=== PATIENT | male | born 1970 | race Caucasian/White ===

== ENCOUNTER 2024-12-25 11:31 | Inpatient (IN) | payer OTHER ==
[~2024-12-25] VITALS: Ht 177.8 cm; Wt 143.0 kg
[~2024-12-25 11:31] MED LIST: ALBU18HF12 PO; AZIT-167 PO; CARV6.2534 PO; FURO20TA4 PO; LOSA100T59 PO; PRED-554 PO; SACU1TAB7 PO; SPIR-37 PO
[2024-12-25] MEDS: FUROSEMIDE 20 MG/2 ML VIAL IVP ONE (11:56)
[2024-12-25] MEDS ORDERED: IOHEXOL 350 MG/ML 100 ML VIAL ONE (12:16)
[2024-12-25] MEDS ORDERED: SODIUM CHLORIDE 0.9% 100 ML ONE (12:17)
[2024-12-25 12:22] LABS: PLATELET COUNT (AUTO) 252 K/uL (150-450); RED BLOOD CELL COUNT(AUTO) 5.20 MIL/uL (4.50-5.90); RED CELL DISTRIBUTION WIDTH 14.1 % (11.5-14.5); WHITE BLOOD COUNT (AUTO) 9.7 K/uL (4.5-11.0)
[2024-12-25 12:23] LABS: CALCIUM, TOTAL 8.9 mg/dL (8.8-10.5); CREATININE 0.91 mg/dL (0.60-1.30); GLOMERULAR FILTR. RATE CALC > 60 mL/min (>60); GLUCOSE,RANDOM 276 mg/dL (70-110); SODIUM SERUM 137 mmol/L (136-145); UREA NITROGEN, BLOOD 14 mg/dL (7-18)
[2024-12-25 12:28] LABS: ALCOHOL, BLOOD (SERUM) < 3 mg/dL (0-10)
[2024-12-25 12:30] LABS: TROPONIN I-HIGH SENSITIVITY 36 ng/L (<76)
[2024-12-25 12:34] LABS: ASPARTATE AMINOTRANSFERASE 23 U/L (15-37); CREATINE KINASE, TOTAL ONLY 148 U/L (39-308); TOTAL PROTEIN, SERUM 7.0 g/dL (6.4-8.2)
[2024-12-25 13:00] VITALS: PULSE 77; PULSE 86; RESP 20; RESP 24; O2SAT 98; O2SAT 99
[2024-12-25 13:47] LABS: ABG BASE EXCESS 0.0 mmol/L (-2.0-3.0); ABG CARBOXYHEMOGLOBIN 1.1 % (0.5-1.5); ABG HCO3 25.3 mmol/L (21.0-28.0); ABG METHEMOGLOBIN 0.6 % (0.0-1.5); ABG OXYGEN CONTENT 21.0 mL/dL (15.0-23.0); ABG OXYGEN SATURATION 99.6 % (94.0-98.0); ABG OXYHEMOGLOBIN 97.9 % (94.0-98.0); ABG PCO2 31 mmHg (32.0-48.0); ABG PH 7.496 (7.350-7.450); ABG TOTAL HEMOGLOBIN 15.1 G/dL (13.5-17.5); FRACTIONATED INSPIRED OXYGEN 33.0 % (21-100.0); PO2, ARTERIAL BG 146.8 mmHg (83.0-108.0); SOURCE, BLOOD GAS ARTERIAL; TEMPERATURE, FAHRENHEIT, BG 97.9 FAHREN (96.0-98.6)
[2024-12-25 13:48] LABS: ALLEN TEST, BLOOD GAS POS; O2 DEVICE,BLOOD GAS NC (ROOM AIR); SITE, BLOOD GAS LFT BRACHIAL
[2024-12-25 13:49] LABS: PH,URINE DRUG SCREEN 5.0 (5.0-8.0)
[2024-12-25 13:55] LABS: ALCOHOL, URINE DRUG SCREEN NEGATIVE (NEGATIVE); AMPHET/METH SCREEN,URINE NEGATIVE (NEGATIVE); BARBITURATE SCREEN, URINE NEGATIVE (NEGATIVE); CANNABINOID SCREEN,URINE NEGATIVE (NEGATIVE); COCAINE SCREEN,URINE NEGATIVE (NEGATIVE); METHADONE SCREEN, URINE NEGATIVE (NEGATIVE)
[2024-12-25 14:26] LABS: TROPONIN I-HIGH SENSITIVITY 32 ng/L (<76)
[2024-12-25] MEDS ORDERED: IPRATROPIUM BROMIDE 0.5 MG/2.5 ML NEB SOLUTION NEB PRN (14:30)
[2024-12-25] MEDS ORDERED: ALBUTEROL SULFATE 2.5 MG/0.5 ML NEB SOLUTION NEB PRN (14:30)
[2024-12-25] MEDS: BENZONATATE 100 MG CAPSULE PO SCH (15:15)
[2024-12-25 18:31] VITALS: BP 158/90; PULSE 107; RESP 19; TEMP 99.1; O2SAT 100
[2024-12-25] MEDS ORDERED: GLUCAGON,HUMAN RECOMBINANT 1 MG VIAL IM PRN (20:00)
[2024-12-25] MEDS: IPRATROPIUM BROMIDE 0.5 MG/2.5 ML NEB SOLUTION NEB SCH (20:00)
[2024-12-25] MEDS: ALBUTEROL SULFATE 2.5 MG/0.5 ML NEB SOLUTION NEB SCH (20:00)
[2024-12-25 20:30] VITALS: BP 158/110; PULSE 110; RESP 20; TEMP 98.4; O2SAT 98
[2024-12-25] MEDS: INSULIN LISPRO 100 UNITS/ML SQ PRN (20:47)
[2024-12-25] MEDS: GuaiFENesin SR 600 MG ER TABLET PO SCH (20:54)
[2024-12-25] MEDS: SACUBITRIL/VALSARTAN 49-51 MG TABLET PO SCH (20:55)
[2024-12-25] MEDS: FUROSEMIDE 20 MG/2 ML VIAL IVP SCH (20:56)
[2024-12-25 21:10] LABS: GLUCOMETER DEV NAME(LOC) 5N.1D; GLUCOSE,POINT OF CARE 285 MG/DL (70-110)
[2024-12-26] VITALS (11 sets, daily range): BP systolic 101–149; BP diastolic 57–108; PULSE 79–105; RESP 16–21; TEMP 97.9–98.2; O2SAT 95–100
[2024-12-26 06:14] LABS: PLATELET COUNT (AUTO) 259 K/uL (150-450); RED BLOOD CELL COUNT(AUTO) 5.48 MIL/uL (4.50-5.90); RED CELL DISTRIBUTION WIDTH 14.3 % (11.5-14.5); WHITE BLOOD COUNT (AUTO) 11.0 K/uL (4.5-11.0)
[2024-12-26 06:32] LABS: CALCIUM, TOTAL 8.5 mg/dL (8.8-10.5); CREATININE 0.76 mg/dL (0.60-1.30); GLOMERULAR FILTR. RATE CALC > 60 mL/min (>60); GLUCOSE,RANDOM 301 mg/dL (70-110); SODIUM SERUM 137 mmol/L (136-145); UREA NITROGEN, BLOOD 12 mg/dL (7-18)
[2024-12-26] MEDS: LOSARTAN POTASSIUM 50 MG TABLET PO SCH (08:59)
[2024-12-26] MEDS: SPIRONOLACTONE 25 MG TABLET PO SCH (09:00)
[2024-12-26] MEDS: FUROSEMIDE 20 MG/2 ML VIAL IVP SCH (09:01)
[2024-12-26 09:16] LABS: GLUCOMETER DEV NAME(LOC) 5N.1D; GLUCOSE,POINT OF CARE 322 MG/DL (70-110)
[2024-12-26 11:35] LABS: GLUCOMETER DEV NAME(LOC) 5N.2C; GLUCOSE,POINT OF CARE 395 MG/DL (70-110)
[2024-12-26 17:11] LABS: GLUCOMETER DEV NAME(LOC) 5N.1D; GLUCOSE,POINT OF CARE 424 MG/DL (70-110)
[2024-12-26] MEDS: INSULIN LISPRO 100 UNITS/ML SQ ONE (17:13)
[2024-12-27] VITALS (11 sets, daily range): BP systolic 93–147; BP diastolic 63–106; PULSE 78–102; RESP 16–22; TEMP 97–98.4; O2SAT 95–100
[2024-12-27 06:06] LABS: PLATELET COUNT (AUTO) 289 K/uL (150-450); RED BLOOD CELL COUNT(AUTO) 5.57 MIL/uL (4.50-5.90); RED CELL DISTRIBUTION WIDTH 14.2 % (11.5-14.5); WHITE BLOOD COUNT (AUTO) 18.8 K/uL (4.5-11.0)
[2024-12-27 06:36] LABS: CALCIUM, TOTAL 8.5 mg/dL (8.8-10.5); CREATININE 0.99 mg/dL (0.60-1.30); GLOMERULAR FILTR. RATE CALC > 60 mL/min (>60); GLUCOSE,RANDOM 327 mg/dL (70-110); SODIUM SERUM 135 mmol/L (136-145); UREA NITROGEN, BLOOD 26 mg/dL (7-18)
[2024-12-27 08:05] LABS: GLUCOMETER DEV NAME(LOC) 5N.1D; GLUCOSE,POINT OF CARE 350 MG/DL (70-110)
[2024-12-27 08:05] LABS: GLUCOMETER DEV NAME(LOC) 5N.1D; GLUCOSE,POINT OF CARE 380 MG/DL (70-110)
[2024-12-27 13:36] LABS: GLUCOMETER DEV NAME(LOC) 5N.1D; GLUCOSE,POINT OF CARE 475 MG/DL (70-110)
[2024-12-27] MEDS ORDERED: DEXTROSE 50%-WATER 25 GM/50 ML SYRINGE IVP PRN (14:00)
[2024-12-27] MEDS: INSULIN LISPRO 100 UNITS/ML SQ PRN (14:01)
[2024-12-27 17:55] LABS: GLUCOMETER DEV NAME(LOC) 5N.1D; GLUCOSE,POINT OF CARE 355 MG/DL (70-110)
[2024-12-27 22:06] LABS: GLUCOMETER DEV NAME(LOC) 5N.1D; GLUCOSE,POINT OF CARE 333 MG/DL (70-110)
[2024-12-28] VITALS (13 sets, daily range): BP systolic 105–145; BP diastolic 85–113; PULSE 74–102; RESP 16–24; TEMP 98.1–98.6; O2SAT 94–100
[2024-12-28 06:06] LABS: PLATELET COUNT (AUTO) 292 K/uL (150-450); RED BLOOD CELL COUNT(AUTO) 5.42 MIL/uL (4.50-5.90); RED CELL DISTRIBUTION WIDTH 14.6 % (11.5-14.5); WHITE BLOOD COUNT (AUTO) 16.7 K/uL (4.5-11.0)
[2024-12-28 06:14] LABS: CALCIUM, TOTAL 8.2 mg/dL (8.8-10.5); CREATININE 1.02 mg/dL (0.60-1.30); GLOMERULAR FILTR. RATE CALC > 60 mL/min (>60); GLUCOSE,RANDOM 320 mg/dL (70-110); SODIUM SERUM 135 mmol/L (136-145); UREA NITROGEN, BLOOD 28 mg/dL (7-18)
[2024-12-28 07:20] LABS: GLUCOMETER DEV NAME(LOC) 5N.1D; GLUCOSE,POINT OF CARE 329 MG/DL (70-110)
[2024-12-28 07:20] LABS: GLUCOMETER DEV NAME(LOC) 5N.2C; GLUCOSE,POINT OF CARE 314 MG/DL (70-110)
[2024-12-28] MEDS: OMEPRAZOLE 20 MG CAPSULE PO SCH (08:16)
[2024-12-28] MEDS ORDERED: BENZONATATE 100 MG CAPSULE PO SCH (16:00)
[2024-12-28 18:01] LABS: GLUCOMETER DEV NAME(LOC) 5N.1D; GLUCOSE,POINT OF CARE 310 MG/DL (70-110)
[2024-12-28 20:50] LABS: GLUCOMETER DEV NAME(LOC) 5N.1D; GLUCOSE,POINT OF CARE 154 MG/DL (70-110)
[2024-12-29] VITALS (8 sets, daily range): BP systolic 145–168; BP diastolic 98–101; PULSE 75–83; RESP 18–22; TEMP 97.5; O2SAT 96–99
[2024-12-29 01:36] LABS: GLUCOMETER DEV NAME(LOC) 5N.2C; GLUCOSE,POINT OF CARE 240 MG/DL (70-110)
[2024-12-29 06:16] LABS: GLUCOMETER DEV NAME(LOC) 5N.2C; GLUCOSE,POINT OF CARE 293 MG/DL (70-110)
[2024-12-29 06:22] LABS: PLATELET COUNT (AUTO) 288 K/uL (150-450); RED BLOOD CELL COUNT(AUTO) 5.65 MIL/uL (4.50-5.90); RED CELL DISTRIBUTION WIDTH 14.6 % (11.5-14.5); WHITE BLOOD COUNT (AUTO) 9.9 K/uL (4.5-11.0)
[2024-12-29 06:32] LABS: CALCIUM, TOTAL 8.2 mg/dL (8.8-10.5); CREATININE 1.04 mg/dL (0.60-1.30); GLOMERULAR FILTR. RATE CALC > 60 mL/min (>60); GLUCOSE,RANDOM 313 mg/dL (70-110); SODIUM SERUM 137 mmol/L (136-145); UREA NITROGEN, BLOOD 30 mg/dL (7-18)
[2024-12-29] MEDS ORDERED: ALBU18HF12 PO (13:59)
[2024-12-29] MEDS ORDERED: PRED-554 PO (13:59)
[2024-12-29] MEDS ORDERED: LOSA-382 PO (13:59)
[2024-12-29] MEDS ORDERED: HYDR-3831 PO (13:59)
[2024-12-29] MEDS ORDERED: SPIR-37 PO (13:59)
[2024-12-29] MEDS ORDERED: CARV-165 PO (13:59)
[2024-12-29] MEDS ORDERED: SACU1TAB7 PO (13:59)
[2024-12-29] MEDS ORDERED: FURO20TA4 PO (13:59)
[2024-12-29] MEDS ORDERED: DAPA5TAB6 PO (13:59)
[2024-12-29] MEDS ORDERED: ATORVASTATIN CALCIUM 20 MG TABLET PO SCH (21:00)
[2024-12-30] MEDS ORDERED: DAPAGLIFLOZIN PROPANEDIOL 5 MG TABLET PO SCH (09:00)
[2024-12-30 17:45] LABS: GLUCOMETER DEV NAME(LOC) 5N.2C; GLUCOSE,POINT OF CARE 244 MG/DL (70-110)
== END 2024-12-29 18:05 | disposition home or self-care (01) | DRG 194 ==
LOC: EMS 11:32 → EDH 13:48 → 5N 18:14
PROVIDERS: ADMIT Internal Medicine; ATTEND Internal Medicine
PROC: 5A09357 Assistance with Respiratory Ventilation, Less than 24 Consecutive Hours, Continuous Positive Airway Pressure (ICD-10-PCS; principal; 2024-12-25)
DX: I11.0 Hypertensive heart disease with heart failure (principal); I47.20 Ventricular tachycardia, unspecified; R65.10 Systemic inflammatory response syndrome (SIRS) of non-infectious origin without acute organ dysfunction; J45.901 Unspecified asthma with (acute) exacerbation; I42.9 Cardiomyopathy, unspecified; E66.2 Morbid (severe) obesity with alveolar hypoventilation; I48.91 Unspecified atrial fibrillation; I50.41 Acute combined systolic (congestive) and diastolic (congestive) heart failure; E11.9 Type 2 diabetes mellitus without complications; D72.829 Elevated white blood cell count, unspecified; I16.0 Hypertensive urgency; E78.5 Hyperlipidemia, unspecified; T38.0X5A Adverse effect of glucocorticoids and synthetic analogues, initial encounter; Y92.238 Other place in hospital as the place of occurrence of the external cause; J44.9 Chronic obstructive pulmonary disease, unspecified; Z68.42 Body mass index [BMI] 45.0-49.9, adult; Z79.899 Other long term (current) drug therapy
CPT/HCPCS: 71045; 71275; 80048; 80076; 80307; 82550; 82805; 82962; 83735; 83880; 84484; 85025; 87040; 93005; 93306; 94640; 94660; 94760; 96374; 96376; 99285; G0480; J1815; J1938; J2919; J7050; 36415-L1; 36415-TC; J7613